=== PATIENT | male | born 1955 | race American Indian/Alaskan Native ===

== ENCOUNTER 2017-04-12 08:14 | Emergency (ER) | payer OTHER ==
[2017-04-12 08:25] VITALS: BP 192/88
--- NOTE | 2017-04-12 09:02 | Emergency Department Report ---
ED Back Pain/Injury HPI - General Chief Complaint: Back Pain/Injury Stated Complaint: BACK PAIN Time Seen by Provider: 04/12/17 08:58 Source: patient Limitations: No Limitations - History of Present Illness Initial Comments: Pt is a 62 y/o male with hx of prostate ca presenting with back/hip pain for the past month. States he takes OTC Aleve that helps temporarily but pain has not resolved. Denies numbness/tingling. Denies bowel/bladder dysfunction. Denies fevers. MD Complaint: back pain -: Gradual, month(s) (1) Place: home Radiation: none Severity: moderate Quality: aching Consistency: constant Improves With: immobilization Worsens With: movement Context: unknown Associated Symptoms: denies other symptoms - Related Data Previous Rx's Medication Instructions Recorded Last Taken Type Acetaminophen/Codeine [Tylenol 1 tab PO Q6H PRN #12 tab 04/12/17 Unknown Rx /Codeine # 3 tab] Cyclobenzaprine [Flexeril] 10 mg PO TID PRN #15 tablet 04/12/17 Unknown Rx Prednisone [predniSONE 10 mg 10 mg PO .TAPER #1 tab.ds.pk 04/12/17 Unknown Rx (6-Day Pack, 21 Tabs)] Allergies Allergy/AdvReac Type Severity Reaction Status Date / Time Penicillins Allergy Unknown Verified 04/12/17 08:26 ED Review of Systems ROS: Stated complaint: BACK PAIN Other details as noted in HPI Comment: All other systems reviewed and negative Constitutional: denies: chills, fever Eyes: denies: eye pain, eye discharge, vision change ENT: denies: ear pain, throat pain Respiratory: denies: cough, shortness of breath, wheezing Cardiovascular: denies: chest pain, palpitations Endocrine: no symptoms reported Gastrointestinal: denies: abdominal pain, nausea, diarrhea Genitourinary: denies: urgency, dysuria Musculoskeletal: as per HPI, back pain. denies: joint swelling, arthralgia Skin: denies: rash, lesions Neurological: denies: headache, weakness, paresthesias Psychiatric: denies: anxiety, depression Hematological/Lymphatic: denies: easy bleeding, easy bruising ED Back Pain Physical Exam - Exam General: Vital signs noted. No distress. Alert and acting appropriately. Heart RRR, Lungs CTAB, abdomen SNTND, pulses normal. Hips unremarkable. Back/Abdomen: No Abdominal Tenderness, No Perithoracic Tenderness, No Perilumbar Tenderness (pain with movement. ), No Sacroiliac Tenderness, No Flank Tenderness, No Straight Leg Raise Pain Neuro: Yes Normal Sensation, Yes Normal DTR's, Yes Normal Gait, No Motor Weakness ED Course Vital Signs 04/12/17 08:22 Temperature 98.6 F Pulse Rate 77 Respiratory 16 Rate Blood Pressure 192/88 O2 Sat by Pulse 100 Oximetry - Reevaluation(s) Reevaluation #1: 04/12/17 09:57 Pt is in NAD and stable for d/c. ED Medical Decision Making - Radiology Data Radiology results: report reviewed naf. degenerative changes. - Medical Decision Making No lesions noted on imaging. Will RX pain meds and he will follow up. - Differential Diagnosis strain, sciatica, bony mets Critical care attestation.: If time is entered above; I have spent that time in minutes in the direct care of this critically ill patient, excluding procedure time. ED Disposition Clinical Impression: Lumbago of lumbar region with sciatica Disposition: TO HOME OR SELFCARE Is pt being admited?: No Condition: Good Instructions: Back Pain (ED) Prescriptions: Acetaminophen/Codeine [Tylenol /Codeine # 3 tab] 1 tab PO Q6H PRN #12 tab PRN Reason: Pain Cyclobenzaprine [Flexeril] 10 mg PO TID PRN #15 tablet PRN Reason: Muscle Spasm Prednisone [predniSONE 10 mg (6-Day Pack, 21 Tabs)] 10 mg PO .TAPER #1 tab.ds.pk Referrals: PRIMARY CAREMD [Primary Care Provider] - 3-5 Days PATRICK BHATT MD [Staff Physician] - 3-5 Days Forms: Work/School Release Form(ED) Time of Disposition: 10:00
--- NOTE | 2017-04-12 09:45 | XRay Report ---
LUMBAR SPINE RADIOGRAPHS INDICATION: Back, hip pain. History of prostate cancer. COMPARISON: None similar at this institution. FINDINGS: AP and lateral lumbar spine radiographs demonstrate normal vertebral body stature and alignment. Mild degenerative spurring and disc narrowing at few levels. Mid to lower lumbar facet arthropathy also possible. Nonobstructive bowel gas pattern. Intact SI joints. CONCLUSION: Mild lumbar spondylosis without acute radiographic abnormality. Thank you for the opportunity to participate in this patient's care.
--- NOTE | 2017-04-12 09:47 | XRay Report ---
BILATERAL HIP RADIOGRAPHS WITH PELVIS INDICATION: Back, hip pain. History of prostate cancer. COMPARISON: None similar. FINDINGS: An AP pelvic radiograph with frog-leg projection of bilateral hips demonstrate normal femoral head contours bilaterally. Imaged bilateral SI and hip joints appear intact. Mild lower lumbar degenerative changes. Possible osteopenia. Few left hemipelvic phleboliths. Nonobstructive bowel gas pattern. CONCLUSION: No acute hip radiographic abnormality with few other findings, as described. Please correlate. Thank you for the opportunity to participate in this patient's care.
== END 2017-04-12 10:07 | disposition home or self-care (01) ==
LOC: ED 08:14
DX: M54.40 Lumbago with sciatica, unspecified side (principal); Z88.0 Allergy status to penicillin
CPT/HCPCS: 72100; 73521; 99283